=== PATIENT | female | born 1945 | race African-American/Black ===

== ENCOUNTER 2020-02-05 08:39 | Emergency (ER) | payer MEDICARE ==
[~2020-02-05] VITALS: Ht 172.7 cm; Wt 104.0 kg
--- NOTE | 2020-02-05 09:19 | PHYS DOC ---
Past History Past Medical History: Asthma, Diabetes, High Cholesterol, Hypertension, Hypothyroid Past Surgical History: Hip Replacement, Other Additional Past Surgical Histo: thyroid removed Alcohol Use: None General Adult EDM: Chief Complaint: ABDOMINAL PAIN HPI: HPI: 74-year-old female presents with right flank pain. The patient has had this pain for a couple of days. She thought that she might be dehydrated sure she drink more water yesterday. She had dark urine that has now gotten sheriff officer in color. This did not help so she was concerned about constipation. She took a laxative and had good bowel movement but that did not help with the pain either. She is most comfortable laying on her right side. If she lays on her left side or lays on her back the pain gets worse. It is a 3 out of 10 laying on her right side it is 7 out of 10 laying on her back. It does seem to be intermittent. She denies dysuria or increased urinary frequency. No history of kidney stones. She does still have her gallbladder. She denies fever or chills. Review of Systems: Review of Systems: Constitutional: Denies fever or chills Eyes: Denies change in visual acuity HENT: Denies nasal congestion or sore throat Respiratory: Denies cough or shortness of breath Cardiovascular: Denies chest pain or edema GI: Denies abdominal pain, nausea, vomiting, bloody stools or diarrhea : Denies dysuria Musculoskeletal: Right flank pain Integument: Denies rash Neurologic: Denies headache, focal weakness or sensory changes Endocrine: Denies polyuria or polydipsia Lymphatic: Denies swollen glands Psychiatric: Denies depression or anxiety Allergies: Allergies: Allergies Coded Allergies Type Severity Reaction Last Updated Verified No Known Drug Allergies 02/05/20 No Physical Exam: PE: Constitutional: Well developed, well nourished, obese, no acute distress, non- toxic appearance. [] HENT: Normocephalic, atraumatic, bilateral external ears normal, oropharynx moist, no oral exudates, nose normal. [] Eyes: PERRLA, EOMI, conjunctiva normal, no discharge. [] Neck: Normal range of motion, no tenderness, supple, no stridor. [] Cardiovascular:Heart rate regular rhythm, no murmur [] Lungs & Thorax: Bilateral breath sounds clear to auscultation [] Abdomen: Bowel sounds normal, soft, no tenderness, no masses, no pulsatile masses. [] Skin: Warm, dry, no erythema, no rash. [] Back: No tenderness, no CVA tenderness. [] Extremities: No tenderness, no cyanosis, no clubbing, ROM intact, no edema. [] Neurologic: Alert and oriented X 3, normal motor function, normal sensory function, no focal deficits noted. [] Psychologic: Affect normal, judgement normal, mood normal. [] Current Patient Data: Vital Signs: Vital Signs Date Time Temp Pulse Resp B/P (MAP) Pulse Ox O2 Delivery O2 Flow Rate FiO2 02/05/20 08:51 97.6 80 18 109/71 (84) 98 Room Air EKG: EKG: [] Radiology/Procedures: Radiology/Procedures: [] Impressions: Exam: CT abdomen/pelvis without intravenous contrast Indication: Flank pain, right Comparison: None Technique: Helical CT imaging performed of the abdomen and pelvis without the use of intravenous contrast. Sagittal and coronal reformats were obtained. One or more of the following individualized dose reduction techniques were utilized for this examination: 1. Automated exposure control 2. Adjustment of the mA and/or kV according to patient size 3. Use of iterative reconstruction technique. Findings: Inherently limited evaluation without intravenous contrast. Lower chest: Lung bases are clear. The heart is normal in size. Liver: Normal. Gallbladder/Biliary Tree: Cholelithiasis. No biliary duct dilatation Pancreas: Normal. Spleen: Normal. Adrenal Glands: Normal. Kidneys/Ureters/Bladder: Kidneys are normal in size. No hydronephrosis or nephrolithiasis. There is a 1.5 cm simple cyst in the superior medial left kidney. Proximal and mid ureters are normal. Distal ureters and bladder are grossly obscured by artifact from bilateral hip prostheses. A few small calcifications in the pelvis are favored to be phleboliths. There is no definite urolithiasis. Reproductive Organs: There are calcified fibroids in the uterus. Stomach, small bowel, and colon: Stomach, small bowel, and appendix are normal. There is colonic diverticulosis. Vasculature: Abdominal aorta is normal in caliber. Mild calcified atherosclerosis. Lymph Nodes: No lymphadenopathy. Peritoneum and retroperitoneum: No free fluid or free air. 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 Severe degenerative disc disease throughout the lumbar spine and lower thoracic spine. Straightening of lumbar lordosis. Impression: 1. No acute intra-abdominal/pelvic abnormality. Specifically, no hydronephrosis or urolithiasis in the kidneys or proximal to mid ureters. The distal ureters and bladder are mostly obscured due to streak artifact from hip prostheses. A distal ureteral or bladder calculus could be missed. 2. Colonic diverticulosis. 3. Cholelithiasis. 4. Multiple calcified fibroids. 5. Severe thoracolumbar degenerative disc disease. Electronically signed by: Heather Alvarenga MD (02/05/2020 10:02 AM) [id number] DICTATED AND SIGNED BY: HEATHER ALVARENGA MD DATE: 02/05/20 1002 CC: MAIKOL FREEMAN MD; GISSELLE SIMENTAL DO ~ Heart Score: Risk Factors: Risk Factors: DM, Current or recent (<one month) smoker, HTN, HLP, family history of CAD, obesity. Risk Scores: Score 0 - 3: 2.5% MACE over next 6 weeks - Discharge Home Score 4 - 6: 20.3% MACE over next 6 weeks - Admit for Clinical Observation Score 7 - 10: 72.7% MACE over next 6 weeks - Early Invasive Strategies Course & Med Decision Making: Course & Med Decision Making Pertinent Labs and Imaging studies reviewed. (See chart for details) The patient's labs are unremarkable. Her CT scan is negative for acute findings. See official read for more details. I am not exactly sure what is causing the patient's discomfort. It is possible there is a low kidney stone or bladder stone not visualized on the CT due to artificial hips. This seems unlikely as there is no blood in her urine. It is also possible that she passed a stone already. The patient is stable for discharge at this time. [] Dragon Disclaimer: Dragon Disclaimer: This electronic medical record was generated, in whole or in part, using a voice recognition dictation system. Departure Departure: Impression: Primary Impression: Right flank pain Disposition: 01 DC HOME SELF CARE/HOMELESS Condition: STABLE Referrals: MAIKOL FREEMAN MD (PCP) Patient Instructions: Flank Pain, [id number] GISSELLE SIMENTAL DO Feb 05, 2020 09:19
[2020-02-05 09:38] LABS: BASO # 0.1 x10^3/uL (0.0-0.2); BASO % 2 % (0-3); EOS # 0.3 x10^3/uL (0.0-0.7); EOS % 6 % (0-3); HEMATOCRIT 43.2 % (36.0-47.0); HEMOGLOBIN 14.4 g/dL (12.0-15.5); LYMPH # 1.3 x10^3/uL (1.0-4.8); LYMPH % 27 % (24-48); MEAN CORPUSCULAR HEMOGLOBIN 33 pg (25-35); MEAN CORPUSCULAR HGB CONC 33 g/dL (31-37); MEAN CORPUSCULAR VOLUME 100 fL (79-100); MONO # 0.5 x10^3/uL (0.0-1.1); MONO % 11 % (0-9); NEUT # 2.5 x10^3uL (1.8-7.7); NEUT % 54 % (31-73); PLATELET COUNT 220 x10^3/uL (140-400); RED BLOOD COUNT 4.34 x10^6/uL (3.50-5.40); RED CELL DISTRIBUTION WIDTH 13.3 % (11.5-14.5); WHITE BLOOD COUNT 4.6 x10^3/uL (4.0-11.0)
[2020-02-05 09:40] LABS: CALCIUM 9.6 mg/dL (8.5-10.1); CREATININE 1.1 mg/dL (0.6-1.0); GFR 58.4; POTASSIUM 4.1 mmol/L (3.5-5.1)
[2020-02-05 09:46] LABS: ALBUMIN 3.8 g/dL (3.4-5.0); TOTAL BILIRUBIN 0.5 mg/dL (0.2-1.0); TOTAL PROTEIN 7.5 g/dL (6.4-8.2)
--- NOTE | 2020-02-05 10:05 | RAD ---
Exam: CT abdomen/pelvis without intravenous contrast Indication: Flank pain, right Comparison: None Technique: Helical CT imaging performed of the abdomen and pelvis without the use of intravenous contrast. Sagittal and coronal reformats were obtained. One or more of the following individualized dose reduction techniques were utilized for this examination: 1. Automated exposure control 2. Adjustment of the mA and/or kV according to patient size 3. Use of iterative reconstruction technique. Findings: Inherently limited evaluation without intravenous contrast. Lower chest: Lung bases are clear. The heart is normal in size. Liver: Normal. Gallbladder/Biliary Tree: Cholelithiasis. No biliary duct dilatation Pancreas: Normal. Spleen: Normal. Adrenal Glands: Normal. Kidneys/Ureters/Bladder: Kidneys are normal in size. No hydronephrosis or nephrolithiasis. There is a 1.5 cm simple cyst in the superior medial left kidney. Proximal and mid ureters are normal. Distal ureters and bladder are grossly obscured by artifact from bilateral hip prostheses. A few small calcifications in the pelvis are favored to be phleboliths. There is no definite urolithiasis. Reproductive Organs: There are calcified fibroids in the uterus. Stomach, small bowel, and colon: Stomach, small bowel, and appendix are normal. There is colonic diverticulosis. Vasculature: Abdominal aorta is normal in caliber. Mild calcified atherosclerosis. Lymph Nodes: No lymphadenopathy. Peritoneum and retroperitoneum: No free fluid or free air. 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 Severe degenerative disc disease throughout the lumbar spine and lower thoracic spine. Straightening of lumbar lordosis. Impression: 1. No acute intra-abdominal/pelvic abnormality. Specifically, no hydronephrosis or urolithiasis in the kidneys or proximal to mid ureters. The distal ureters and bladder are mostly obscured due to streak artifact from hip prostheses. A distal ureteral or bladder calculus could be missed. 2. Colonic diverticulosis. 3. Cholelithiasis. 4. Multiple calcified fibroids. 5. Severe thoracolumbar degenerative disc disease. Electronically signed by: Heather Alvarenga MD (02/05/2020 10:02 AM) [id number]
[2020-02-05 10:07] LABS: BACTERIA,URINE FEW /HPF (0-FEW); BILIRUBIN,URINE NEG (NEG); CLARITY,URINE HAZY; COLOR,URINE YELLOW; GLUCOSE,URINE NEG (NEG); NITRITE,URINE NEG (NEG); SQUAMOUS EPITHELIAL CELL,UR MOD /LPF; UROBILINOGEN,URINE 0.2 mg/dL (0.2 mg/dL)
[2020-02-05] MEDS ORDERED: HYDR-3165 PO (10:27)
[2020-02-05] MEDS ORDERED: HYDROcodone/APAP 5/325MG 1 TAB TABLET PO ONE (10:30)
[2020-02-05 10:34] VITALS: BP 107/61
== END 2020-02-05 10:40 | disposition home or self-care (01) ==
LOC: ER 08:39
DX: R10.9 Unspecified abdominal pain (principal); J45.909 Unspecified asthma, uncomplicated; E11.9 Type 2 diabetes mellitus without complications; E78.00 Pure hypercholesterolemia, unspecified; I10 Essential (primary) hypertension; E03.9 Hypothyroidism, unspecified
CPT/HCPCS: 36415; 74176; 80053; 81001; 83690; 85025; 87086; 99284-25

== ENCOUNTER → 2021-01-20 | Outpatient (CLI) | payer MEDICARE ==
[~2021-01-20] MED LIST: HYDR-3165 PO
--- NOTE | 2021-01-20 11:28 | RAD ---
EXAM: DUAL ENERGY X-RAY ABSORPTIOMETRY (DEXA). HISTORY: Postmenopausal screening. FINDINGS: The lowest measured T-score is 0.0 in the right forearm, based on a bone mineral density of 0.712 g/cm^2. Refer to the worksheets for full detail. No comparison examinations are available. IMPRESSION: 1. Normal. Bone mineral density yields a T-score of -1.0 or greater. Fracture risk is low. 2. FRAX report: Not calculated. METHODOLOGY: Dual energy x-ray absorptiometry was performed to measure bone mineral density. The foll owing analysis is based on the 2019 Official Positions of the International Society for Clinical Dens itometry: Measurements of the hips and the average of L1-L4 are preferred. When the spine and/or hip cannot be feasibly measured or interpreted, or in the setting of hyperparathyroidism, distal radial bone minera l density may be measured. The lumbar spine T-score is based on the average bone mineral density of L1-L4. In the setting of art ifact or anatomic abnormality, some lumbar levels may be excluded, and the remaining levels used for calculation. A single lumbar level is not used for diagnosis, and if only a single level is available for assessment, another anatomic site will be used to assign a diagnosis. The hip T-score is based on the bone mineral density measurement of the femoral neck or total proxima l femur of either side, whichever is lowest. Bilateral mean values are not used for diagnosis. The forearm T-score is derived from 33% of the distal radius of the nondominant forearm. Electronically signed by: Angelic Green MD (01/20/2021 11:25 AM) [id number]
--- NOTE | 2021-01-27 18:04 | RAD ---
Bilateral digital screening mammograms: Reason for examination: Routine screening. Comparison is made to previous study dated 07/05/2020. Interpretation was made with the benefit of CAD. Findings: Breast density: Category B. There are scattered areas of fibroglandular density.. There are no dominant masses, suspicious calcifications or architectural distortions. There are uncha nged benign-appearing calcifications, bilaterally. Again seen is a biopsy marker in the 6 o'clock reg ion of the left breast. There is an unchanged small oval circumscribed mass in the posterior aspect o f the breast on the MLO view. There are postreduction changes. Impression: No evidence of malignancy. Assessment: BI-RADS 2. Benign findings. Recommendation: Routine screening. This patient's information has been entered into a reminder system for the patient to be notified wit h the results of her examination and a target date for the next mammogram. Electronically signed by: Kanika Valentine MD (01/27/2021 6:01 PM) [id number]
== END ==
LOC: MAMMO 10:13
PROVIDERS: ATTEND Family Medicine
DX: Z12.31 Encounter for screening mammogram for malignant neoplasm of breast (principal); Z00.00 Encounter for general adult medical examination without abnormal findings; M85.80 Other specified disorders of bone density and structure, unspecified site; N95.9 Unspecified menopausal and perimenopausal disorder
CPT/HCPCS: 77067; 77080